=== PATIENT | male | born 1965 | race Caucasian/White ===

== ENCOUNTER 2024-03-12 03:17 | Outpatient (CLI) | payer OTHER | END 2024-03-12 23:59 | disposition critical access hospital (66) | LOC: EMS 03:17 | DX: R56.9 Unspecified convulsions (principal); R11.2 Nausea with vomiting, unspecified; R10.11 Right upper quadrant pain; R10.12 Left upper quadrant pain; R50.9 Fever, unspecified; R19.7 Diarrhea, unspecified; R42 Dizziness and giddiness; I95.9 Hypotension, unspecified | CPT/HCPCS: A0425; A0427 ==

== ENCOUNTER 2024-03-12 03:49 | Emergency (ER) | payer OTHER ==
--- NOTE | 2024-03-12 03:58 | ED Physician Documentation ---
History of Present Illness - Stated complaint Stated Complaint: SZ - History obtained from History obtained from: Patient - Additonal information Additional information: 58-year-old man, previously healthy presents with fever for a day with associated nausea, neck and body aches, and episode tonight while lying in bed in which he felt malaise and then had a twitching episode and was briefly unresponsive. He came to and was not confused, did not urinate or defecate on himself. No prior history of seizure disorder. EMS states that he had profound orthostasis on their arrival. He received 1 L of IV fluids and 4 mg IV Zofran en route. PD PAST MEDICAL HISTORY - Allergies Allergies/Adverse Reactions: Allergies Allergy/AdvReac Type Severity Reaction Status Date / Time No Known Drug Allergies Allergy Verified 03/12/24 04:02 PD ED PE NORMAL - Vitals Vital signs reviewed: Yes - General General: Alert and oriented X 3, No acute distress, Well developed/nourished - HEENT HEENT: Atraumatic, PERRL, EOMI, Moist mucous membranes, Pharynx benign - Neck Neck: Supple, no meningeal sign - Cardiac Cardiac: RRR - Respiratory Respiratory: No respiratory distress, Clear bilaterally - Abdomen Abdomen: Other (Left lower quadrant tender to palpation. Otherwise nontender nondistended) - Derm Derm: Normal color, Warm and dry - Extremities Extremities: No deformity - Neuro Neuro: Alert and oriented X 3, No motor deficit, No sensory deficit - Psych Psych: Normal mood, Normal affect Results - Vitals Vitals: Vital Signs - 24 hr 03/12/24 03/12/24 03/12/24 04:00 04:24 04:32 Temperature 36.5 C Heart Rate 75 78 83 Respiratory 20 20 20 Rate Blood Pressure 120/100 H 81/64 L 63/21 L O2 Saturation 95 96 100 If not protocol : Oxygen Flow, liters/minute 03/12/24 03/12/24 03/12/24 05:02 05:15 06:00 Temperature Heart Rate 74 78 76 Respiratory 20 20 14 Rate Blood Pressure 84/70 L 91/73 89/70 L O2 Saturation 96 93 95 If not protocol 2 : Oxygen Flow, liters/minute 03/12/24 03/12/24 06:28 06:31 Temperature Heart Rate 75 77 Respiratory 14 14 Rate Blood Pressure 85/69 L 93/71 O2 Saturation 92 92 If not protocol 2 2 : Oxygen Flow, liters/minute Oxygen O2 Source Nasal cannula - EKG (time done) 0416 EKG releavant findings:: EKG personally interpreted by author of this note. Relevant findings are: Rate: Rate (enter#) (81) Rhythm: NSR [place]: Normal Intervals: Normal [place] QRS: Normal Ischemia: Other (remigio in v2, v3 c/w DEAN) 0601 EKG releavant findings:: EKG personally interpreted by author of this note. Relevant findings are: Rate: Rate (enter#) (75) Rhythm: NSR [place]: Normal Intervals: Normal [place] QRS: Normal Ischemia: ST elevation c/w repol Compare to prior EKG: Unchanged from prior EKG (unchanged from 2 hours previous) - Labs Labs: Laboratory Tests 03/12/24 03/12/24 03/12/24 03:53 03:56 03:56 WBC 10.4 RBC 3.49 L Hgb 11.2 L Hct 33.5 L MCV 96.0 H MCH 32.1 H MCHC 33.4 RDW 12.5 Plt Count 142 MPV 11.1 Neut # (Auto) 7.7 H Lymph # (Auto) 1.4 L [place] # (Auto) 0.9 Eos # (Auto) 0.2 Baso # (Auto) 0.0 Absolute Nucleated RBC 0.00 Nucleated RBC % 0.0 Sodium 136 Potassium 3.8 Chloride 103 Carbon Dioxide 27 Anion Gap 6.0 BUN 15 Creatinine 1.0 Estimated GFR (MDRD) 77 L Glucose 151 H POC Whole Bld Glucose 134 H Lactic Acid Calcium 8.4 L Total Bilirubin 1.2 H AST 83 H ALT 86 H Alkaline Phosphatase 63 Total Protein 5.7 L Albumin 3.5 Globulin 2.2 Albumin/Globulin Ratio 1.6 Lipase 03/12/24 03/12/24 03:56 03:58 WBC RBC Hgb Hct MCV MCH MCHC RDW Plt Count MPV Neut # (Auto) Lymph # (Auto) [place] # (Auto) Eos # (Auto) Baso # (Auto) Absolute Nucleated RBC Nucleated RBC % Sodium Potassium Chloride Carbon Dioxide Anion Gap BUN Creatinine Estimated GFR (MDRD) Glucose POC Whole Bld Glucose Lactic Acid 1.9 Calcium Total Bilirubin AST ALT Alkaline Phosphatase Total Protein Albumin Globulin Albumin/Globulin Ratio Lipase < 10 L Procedures - Central Line - Major Central Line Preparation: Consent Obtained, Time out completed, Ultrasound used, Sterile prep and drape Central line location: Right IJ Central line type: Triple lumen Central line aftercare: Chlorhexidine disc placed, Secured, Placement confirmed, No pneumothorax, No complications, Bundle checklist complete, Pt tolerated well PD Medical Decision Making - ED course ED course: 58-year-old man presents with 24 hours of fever with associated nausea and a syncopal episode tonight while lying in bed. Doubt seizure disorder given no prior history, no postictal., And no incontinence. Also with profound orthostasis with EMS, indicating likely syncope related to orthostatic hypotension. plan to investigate labwork, ekg, cxr, head and a/p CT. IVF, nausea and pain meds provided with improvement. Note patient had syncopal episode walking to bathroom and was persistently hypotensive upon return to bed despite large volume IVF. Peripheral levophed started and central line placed to start on central levo. patient responded well. Vanc, zosyn, ampicillin provided for empiric treatment of septic shock. Wet read of CT imaging - patient appears to have bibasilar pneumonia vs atelectasis, which could be potential source of infection. Hepatomegaly and significant stool burden in the abdomen. CT head and neck look unremarkable. His official CT a/p read states possible gallbladder pathology therefore ultrasound was ordered. plan to endorse to incoming daytime ED MD at 7am shift change pending CT results and admission to ICU for septic shock, possibly 2/2 pneumonia. Departure - Departure Clinical Impression: Syncope, Nausea, Fever, Septic shock Condition: Stable
[2024-03-12] MEDS ORDERED: METOCLOPRAMIDE 10 MG/2 ML VIAL ONE (04:03)
[2024-03-12] MEDS ORDERED: iohexoL-300 100 ML VIAL ONE (04:09)
[2024-03-12] MEDS: SODIUM CHLORIDE 0.9% 1,000 ML IV STA ×2 (04:20)
[2024-03-12] MEDS: METOCLOPRAMIDE 10 MG/2 ML VIAL IVP STA (04:20)
[2024-03-12 04:31] LABS: BASOPHILS % (AUTO) 0.2 %; EOSINOPHILS # (AUTO) 0.2 10^3/uL (0.0-0.7); EOSINOPHILS % (AUTO) 1.6 %; HCT - HEMATOCRIT 33.5 % (42.0-52.0); HGB - HEMOGLOBIN 11.2 g/dL (14.0-18.0); LYMPHOCYTES # (AUTO) 1.4 10^3/uL (1.5-3.5); LYMPHOCYTES % (AUTO) 13.8 %; MEAN CORPUSCULAR HEMOGLOBIN 32.1 pg (27.0-31.0); MEAN CORPUSCULAR HGB CONC 33.4 g/dL (32.0-36.0); MEAN PLATELET VOLUME 11.1 fL (7.4-11.4); MONOCYTES # (AUTO) 0.9 10^3/uL (0.0-1.0); NEUTROPHILS # (AUTO) 7.7 10^3/uL (1.5-6.6); NEUTROPHILS % (AUTO) 74.8 %; PLT - PLATELET COUNT 142 10^3/uL (130-450); RED BLOOD COUNT 3.49 10^6/uL (4.70-6.10); RED CELL DISTRIBUTION WIDTH 12.5 % (12.0-15.0); WHITE BLOOD COUNT 10.4 x10^3/uL (4.8-10.8)
[2024-03-12 04:46] LABS: ALBUMIN 3.5 g/dL (3.2-5.5); ALBUMIN/GLOBULIN RATIO 1.6 (1.0-2.2); BILIRUBIN,TOTAL 1.2 mg/dL (0.2-1.0); CALCIUM 8.4 mg/dL (8.5-10.3); POTASSIUM 3.8 mmol/L (3.5-4.5); TOTAL PROTEIN 5.7 g/dL (6.4-8.9)
[2024-03-12] MEDS ORDERED: NOREPINEPHRINE/0.9 % NS 8 MG/250 ML BAG IV ONE (04:47)
[2024-03-12] MEDS: NOREPINEPHRINE/0.9 % NS 8 MG/250 ML BAG IV SCH (04:51)
[2024-03-12] MEDS: MORPHINE 2 MG/ML CARPUJECT IVP STA (04:53)
[2024-03-12] MEDS ORDERED: VANCOMYCIN 1 GM VIAL ONE (04:56)
[2024-03-12] MEDS: PIPERACILLIN/TAZOBACTAM 3.375 GM in SODIUM CHLORIDE 0.9% MINIBAG 100 ML IV STA (05:05)
[2024-03-12] MEDS: VANCOMYCIN INJ 1.25 GM in SODIUM CHLORIDE 0.9% 500 ML IV STA (05:48)
[2024-03-12] MEDS: AMPICILLIN 500 MG VIAL IVP STA (05:58)
[2024-03-12] MEDS: HYDROmorphone 1 MG/ML CARPUJECT IVP STA ×2 (05:58→14:25)
[2024-03-12] MEDS: iohexoL-300 100 ML VIAL IVP ONE (06:03)
[2024-03-12 07:13] LABS: B. PARAPERTUSSIS- RESP PCR PAN NOT DETECTED; B. PERTUSSIS- RESP PCR PANEL NOT DETECTED; C. PNEUMONIAE- RESP PCR PANEL NOT DETECTED; CORONAVIRUS 229E-RESP PCR NOT DETECTED; CORONAVIRUS HKU1-RESP PCR NOT DETECTED; CORONAVIRUS NL63-RESP PCR NOT DETECTED; CORONAVIRUS OC43-RESP PCR NOT DETECTED; HUMAN METAPNEUMOVIRUS NOT DETECTED; INFLUENZA A- RESP PCR PANEL NOT DETECTED; INFLUENZA B - RESP PCR PANEL NOT DETECTED; M. PNEUMONIAE- RESP PCR PANEL NOT DETECTED; PARAINFLUENZA VIRUS 1 NOT DETECTED; PARAINFLUENZA VIRUS 2 NOT DETECTED; PARAINFLUENZA VIRUS 3 NOT DETECTED; PARAINFLUENZA VIRUS 4 NOT DETECTED; RHINOVIRUS/ENTEROVIRUS NOT DETECTED; RSV- RESP PCR PANEL NOT DETECTED; SARS-CoV-2 -RESP PCR PANEL NOT DETECTED
[2024-03-12 08:10] LABS: BILIRUBIN,URINE MODERATE (NEGATIVE); GLUCOSE, URINE (UA) NEGATIVE (NEGATIVE); KETONES,URINE (UA) NEGATIVE (NEGATIVE); LEUKOCYTE ESTERASE, URINE NEGATIVE (NEGATIVE); NITRITE,URINE NEGATIVE (NEGATIVE); OCCULT BLOOD,URINE NEGATIVE (NEGATIVE); PH,URINE 6.5 PH (5.0-7.5); PROTEIN,URINE 30 mg/dL (NEGATIVE); UROBILINOGEN,URINE 1 (NORMAL) E.U./dL (NORMAL)
[2024-03-12 08:14] LABS: CLARITY,URINE CLEAR (CLEAR)
[2024-03-12 08:17] LABS: BACTERIA,URINE None Seen /HPF (None Seen); RBC,URINE None Seen /HPF (0-5); SQUAMOUS EPITHELIAL CELL,UR RARE Squamous (<= Few); WBC,URINE 0-3 /HPF (0-3)
[2024-03-12] MEDS: ONDANSETRON 4 MG/2 ML VIAL IVP STA (14:25)
[2024-03-12 14:47] VITALS: BP 119/84; O2SAT 93
--- NOTE | 2024-03-12 15:32 | ED Physician Documentation ---
ED Addendum - Addendum Addendum: 03/12/24 15:21 At shift change I was asked to care for Venkat Saucedo a 58-year-old male who presented to the emergency department in the early hours of the morning with a syncopal episode and abdominal pain. All his symptoms were preceded by a day of whole body aches and fever that was not accompanied by specific abdominal pain. He went to an urgent care clinic without specific findings. He did not develop the abdominal pain until the syncopal episode. The patient appeared septic hypotensive and required central line and pressors. CT scan of the head was negative x-rays of the neck were negative. CT of the chest was concerning for a small pericardial effusion. The over read on that scan indicates that this is possibly related to a artifact. CT of the abdomen and pelvis was concerning for the possibility of cholecystitis. This was confirmed with ultrasound of the abdomen.The patient responded well to IV fluid and pressors. When I examined the patient shortly after 7:00 in the morning he was pale had some delay in execution of motor commands and some speech latency within hours is color had returned he was talking normally and acting normally. This afternoon he was able to ambulate to the bathroom feeling stronger and able to defecate and urinate without problem. I reviewed the patient's pain medication request and found that he had pain when he arrived and was abdominal pain and when he required a second dose later in the day it was again abdominal pain. He tells me that prior to the syncopal episode he just had overall body aches and that seemed to improve about midnight. All of this leads me to believe that his central focus for infection is likely his gallbladder. He does not give a specific history of prior episodes of abdominal pain and he does not have evidence of stones in the gallbladder. He does not have evidence of obstruction in the gallbladder or outside of the gallbladder. 03/12/24 15:32 Departure - Departure Disposition: 02 Transfer Acute Care Hosp Clinical Impression: Syncope, Nausea, Fever, Septic shock, Cholecystitis Condition: Stable Forms: PCP List
--- NOTE | 2024-03-21 09:57 | Ultrasound Report ---
PROCEDURE: Abdomen Limited INDICATIONS: sepsis, ct with GB wall thickening TECHNIQUE: Real-time focused scanning was performed of the abdomen, with image documentation. COMPARISONS: CT angiogram of the abdomen and pelvis dated 03/12/2024 FINDINGS: Liver: Liver is normal in size and heterogeneous in echotexture. No focal intrahepatic lesion. Hepat opedal flow. Gallbladder: Gallbladder demonstrates wall thickening and mild pericholecystic fluid similar to that seen on comparison CT. No gallstones identified. Negative sonographic Cummins's sign. Biliary ducts: Intrahepatic bile ducts are non-dilated. Extrahepatic bile duct caliber measures 3 m m. Normal is 6-7 mm or less in diameter, or 10 mm or less post-cholecystectomy. Pancreas: Visualized portions of the pancreas are sonographically normal. Right kidney: Normal in size and echotexture. Right kidney measures 11.1 cm long. No hydronephrosis or nephrolithiasis. No solid masses. No complex renal cystic lesions which require follow-up. IVC: Intrahepatic inferior vena cava is patent. Miscellaneous: No free abdominal fluid. No free fluid IMPRESSION: Thickened gallbladder wall with pericholecystic fluid. No evidence for gall stones. Findings are nons pecific but may be seen with chronic cholecystitis. No other findings to suggest acute cholecystitis. Reviewed by: Rosas Durbin MD on 03/12/2024 9:03 PM PDT Approved by: Rosas Durbin MD on 03/12/2024 9:03 PM PDT Station ID: [id number]
--- NOTE | 2024-03-21 16:06 | CT Report ---
PROCEDURE: Angio Chest INDICATIONS: hypotension, abdominal pain CONTRAST: 100 ML OMNI 300 TECHNIQUE: After the administration of intravenous contrast, 2 mm axial images were acquired from the pulmonary apices to the posterior costophrenic angles during the arterial phase. In addition, 1 mm lung kernel and 5 mm soft tissue kernel reconstructions were performed. 3-dimensional coronal oblique maximum int ensity projection (MIP) reformats, 8 mm axial MIP, and 5 mm coronal and sagittal MPR reformats were t hen performed through the thorax. For radiation dose reduction, the following was used: automated exp osure control, adjustment of mA and/or kV according to patient size. COMPARISON: Chest x-ray 03/12/2024 FINDINGS: Image quality: Excellent. Large vessels: No filling defects within the opacified pulmonary arteries, accounting for motion and contrast timing. No evidence of acute aortic syndrome or aortic aneurysm. Lungs and pleura: No consolidation. No pleural effusions. No pneumothorax. No suspicious pulmonary n odules which require follow up. Dependent changes are present within the lung bases bilaterally. Mediastinum: Heart size is normal. Small pericardial effusion. Portions of the effusion demonstrate a slight appearance of increased density. No large vessel abnormality. No mediastinal adenopathy by si ze criteria. Chest wall and lower neck: Thyroid is unremarkable. No axillary or supraclavicular adenopathy by size . Bones: No aggressive osseous abnormality. Upper Abdomen: Unremarkable. IMPRESSION: No pulmonary embolus. Lungs are clear. Small pericardial effusion with fluid appearing iso-/hyperdense within portions. This is likely refle ctive of artifact/contrast bolus timing. However, small component of underlying complex fluid second yue to infection, inflammation or potential blood products cannot be definitively excluded although f elt to be less likely. The above findings are concordant with preliminary report. Reviewed by: Valerie Price MD on 03/12/2024 9:57 AM PDT Approved by: Valerie Price MD on 03/12/2024 9:57 AM PDT Station ID: [id number]
--- NOTE | 2024-03-21 16:06 | CT Report ---
PROCEDURE: Head WO INDICATIONS: syncope, fever TECHNIQUE: Noncontrast 4.5 mm thick angled axial sections acquired from the foramen magnum to the vertex. For r adiation dose reduction, the following was used: automated exposure control, adjustment of mA and/or kV according to patient size. COMPARISON: CT cervical spine 03/12/2024. FINDINGS: Image quality: Excellent. CSF spaces: Basal cisterns are patent. No extra-axial fluid collections. Ventricles are normal in size and shape. Brain: No midline shift. No intracranial masses or hemorrhage. Brock-white matter interface is norm al. Skull and face: Calvarium and visualized facial bones are intact, without suspicious lesions. Sinuses: Visualized sinuses demonstrate small areas of mucosal thickening with mucus retention cysts versus polyps particularly in the maxillary sinuses.. IMPRESSION: No acute intracranial pathology. The above findings are concordant with preliminary report. Reviewed by: Valerie Price MD on 03/12/2024 8:40 AM PDT Approved by: Valerie Price MD on 03/12/2024 8:40 AM PDT Station ID: [id number]
--- NOTE | 2024-03-21 16:06 | CT Report ---
PROCEDURE: Cervical Spine WO INDICATIONS: neck pain X 3 days TECHNIQUE: Noncontrast 3 mm thick sections acquired from the skull base to the T4 level. Sagittal and coronal r eformats were then constructed. For radiation dose reduction, the following was used: automated exp osure control, adjustment of mA and/or kV according to patient size. COMPARISON: None. FINDINGS: Image quality: Excellent. Bones: No fractures or dislocations. Visualized superior ribs are intact. Soft tissues: Prevertebral soft tissues are normal in thickness. No paravertebral hematomas. No ap ical pneumothoraces. IMPRESSION: No visualized fracture. The above findings are concordant with preliminary report. Reviewed by: Valerie Price MD on 03/12/2024 8:59 AM PDT Approved by: Valerie Price MD on 03/12/2024 8:59 AM PDT Station ID: [id number]
--- NOTE | 2024-03-21 16:06 | XRAY Report ---
PROCEDURE: Chest 1V INDICATIONS: Sepsis TECHNIQUE: One view of the chest was acquired. COMPARISON: None. FINDINGS: Surgical changes and devices: None. Lungs and pleura: No pleural effusions or pneumothorax. Lungs are clear. Mediastinum: Mediastinal contours appear normal. Heart size is normal. Bones and chest wall: No suspicious bony lesions. Overlying soft tissues appear unremarkable. IMPRESSION: No acute cardiopulmonary process. The above findings are concordant with preliminary report. Reviewed by: Valerie Price MD on 03/12/2024 8:38 AM PDT Approved by: Valerie Price MD on 03/12/2024 8:38 AM PDT Station ID: [id number]
--- NOTE | 2024-03-21 16:06 | XRAY Report ---
PROCEDURE: Chest for Line Placement INDICATIONS: central line placement TECHNIQUE: One view of the chest was acquired. COMPARISON: None. FINDINGS: Surgical changes and devices: Right-sided central venous catheter is present with distal tip project ing over the proximal SVC. Lungs and pleura: No pleural effusions or pneumothorax. Lungs are clear. Mediastinum: Mediastinal contours appear normal. Heart size is normal. Bones and chest wall: No suspicious bony lesions. Overlying soft tissues appear unremarkable. IMPRESSION: Right-sided central venous catheter placement in appropriate location. The above findings are concordant with preliminary report. Reviewed by: Valerie Price MD on 03/12/2024 8:40 AM PDT Approved by: Valerie Price MD on 03/12/2024 8:40 AM PDT Station ID: [id number]
--- NOTE | 2024-03-21 16:06 | CT Report ---
PROCEDURE: Angio Abdomen/Pelvis INDICATIONS: abdominal pain CONTRAST: 100 ML OMNI 300 TECHNIQUE: After the administration of intravenous contrast, 2.5 mm thick sections acquired from the diaphragm t o the symphysis. 10 mm maximum-intensity projection (MIP) reformats were then acquired. For radiati on dose reduction, the following was used: automated exposure control, adjustment of mA and/or kV ac cording to patient size. COMPARISON: CT angiogram chest 03/12/2024. FINDINGS: Image quality: Excellent. Aorta: Aorta is widely patent. No areas of hemodynamically significant stenosis, vascular occlusion or aneurysmal dilation. Mesenteric arteries: Superior and inferior mesenteric arteries appear patent. 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 Right pelvic arteries: Widely patent. Left pelvic arteries: Widely patent. Extravascular soft tissues: Lung bases are clear. Heart size is normal. Liver and spleen are janna l in size and enhancement. Gallbladder is poorly characterized but has appearance of wall thickening versus pericholecystic inflammatory change. No definitive stones. Biliary system is non dilated. Pa ncreas enhances normally. No adrenal nodules. Kidneys are normal in size and enhancement, without h ydronephrosis. Non opacified bowel loops are nonobstructive. Scattered diverticula without inflammat ory change. Mild appearance of small bowel thickening overall nonspecific. No free fluid or air. No retroperitoneal or mesenteric adenopathy. No ventral hernias. No suspicious bony lesions. No verte bral body compression fractures. IMPRESSION: Mild appearance of questionable bladder wall thickening versus pericholecystic inflammat ory change. It is poorly characterized on current exam and ultrasound may be obtained if indicated. Diverticulosis. Mild thickening of small bowel. Enterocolitis cannot be excluded. The above findings are concordant with preliminary report. Reviewed by: Valerie Price MD on 03/12/2024 9:38 AM PDT Approved by: Valerie Price MD on 03/12/2024 9:38 AM PDT Station ID: [id number]
== END 2024-03-12 15:53 | disposition short-term general hospital (02) ==
LOC: EDUNIT# → ED 03:49
DX: R55 Syncope and collapse (principal); A41.9 Sepsis, unspecified organism; R65.21 Severe sepsis with septic shock; K81.9 Cholecystitis, unspecified
CPT/HCPCS: 36415; 36556; 70450; 71045; 71275; 72125; 74174; 76705; 80053; 81001; 83605; 83690; 85025; 87040; 87633; 93005; 96365; 96366; 96367; 96375; 99285; J1170; J2765; J3370; Q9967; 87086